=== PATIENT | male | born 1960 | race Two or more races ===

== ENCOUNTER 2019-01-11 09:40 | Outpatient (CLI) | payer OTHER | END 2019-01-11 09:46 | disposition home or self-care (01) | LOC: LAB 09:40 | DX: R97.20 Elevated prostate specific antigen [PSA] (principal) ==

== ENCOUNTER → 2019-02-09 | Outpatient (CLI) | payer OTHER | END | disposition home or self-care (01) | LOC: SONOGRAMA 07:14 | DX: R97.20 Elevated prostate specific antigen [PSA] (principal) ==